=== PATIENT | male | born 1975 | race Caucasian/White ===

== ENCOUNTER 2017-02-16 10:52 | Emergency (ER) | payer OTHER ==
--- NOTE | ~2017-02-16 | EKG ---
PATIENT: GLYNN CHAMBERS UNIT #: [id number] Ventricular Rate: 73 BPM Atrial Rate: 73 BPM P-R Interval: 180 ms QRS Duration: 84 ms Q-T Interval: 364 ms QTC Calculation(Bezet): 401 ms P [place]: 60 degrees Calculated R [place]: 64 degrees Calculated T [place]: 27 degrees Diagnosis Line: Normal sinus rhythm Diagnosis Line: Early repolarization Diagnosis Line: Normal ECG Diagnosis Line: When compared with ECG of 27-MAR-2016 20:30, Diagnosis Line: No significant change was found Diagnosis Line: Confirmed by NARCISA BAUMAN MD ([id number]) on Diagnosis Line: 02/17/2017 3:45:30 PM INTERPRETING MD: MITUL BOWIE
[~2017-02-16 10:52] MED LIST: ACETAMINOPHEN325 MG PO; ALBUTEROL17 GM; ASPIRIN PO; ASPIRIN81 M1 PO; BRILINTA90 MG PO; CIPRO PO; CLEOCIN PO; CORTISPORIN-TC10 ML AD; CORTISPORIN-TC10 ML OT; DOLOBID500 MG PO; DOXYCYCLINE HY100 M1 PO; E-MYCIN250 MG PO; EFFIENT10 MG PO; FIORICET W/CODE1 CAP PO; FIORINAL 50-321 EACH PO; FLEXERIL PO; IMDUR-ER30 M1 PO; LEVAQUIN PO; LIPITOR80 MG PO; LISINOPRIL PO; LISINOPRIL10 MG PO; LISINOPRIL20 MG PO; LOPRESSOR PO; LOW DOSE ASPIRI81 M1 PO; METOPROLOL SUCC25 MG PO; NITROGLYGERIN0.4 MG SL; NO MEDICATIONS; NORVASC PO; NORVASC10 MG PO; ORUDIS75 M1 DOB; OTC COUGH MED; PAIN MED; PERCOCET5/325 PO; PHENERGAN W/CO120 ML PO; PREDNISONE; SIMVASTATIN10 MG PO; SKELAXIN PO; THERA-FLU; ULTRAM PO; VOLTAREN50 MG PO; VOLTAREN75 MG PO; WATER PILL; ZESTORETIC 20/11 TAB PO; ZITHROMAX PO; ZITHROMAX1 G/PKT PO; ZOCOR PO; ZOCOR20 MG PO
== END 2017-02-16 13:00 | disposition left against medical advice (07) ==
LOC: CED 10:52 → CFTX 13:00
DX: Z53.21 Procedure and treatment not carried out due to patient leaving prior to being seen by health care provider (principal)
CPT/HCPCS: 93005

== ENCOUNTER 2017-06-02 23:53 | Emergency (ER) | payer OTHER ==
[~2017-06-02] VITALS: Ht 154.9 cm; Wt 83.9 kg
--- NOTE | ~2017-06-02 | CR72 ---
[facility] A Service [facility] RADIOLOGY TEXT RESULTS PATIENT: GLYNN CHAMBERS SR LOCATION: SED : 74 UNIT #: [id number] AGE: [address]: Frederic Posadas MD SEX: M ORDER DR: [id number] [place] [address] [id number] E MR#: [id number] Acc #: [id number] NAME: GLYNN CHAMBERS SR : 1975 SEX: M STUDY DATE/TIME: 06/03/2017 0:28 UNIT: SED ROOM: STUDY DESCRIPTION: CR Chest Single View Portable Attending Physician: Frederic Posadas M.D. Ordering Physician: Frederic Posadas M.D. Primary Care Physician: Ferdinand Nguyễn M.D. MEDICAL IMAGING REPORT This report is preliminary unless electronic signature is present. EXAM Portable chest INDICATION Chest pain for the past week. PROCEDURE Frontal view of the chest. COMPARISON 01/30/2016. FINDINGS Heart size is unchanged. No dense consolidation, pleural fluid or pneumothorax. IMPRESSION No active process. Dictated by... César Mcgregor M.D. THIS IS AN ELECTRONICALLY VERIFIED REPORT César Mcgregor M.D. at 06/03/2017 10:07 PM EED/chelly TD: 06/03/2017 07:09 JOB #: [id number] MEDICAL IMAGING REPORT [facility] A Service [facility] RADIOLOGY TEXT RESULTS PATIENT: GLYNN CHAMBERS SR LOCATION: SED : 73 UNIT #: [id number] AGE: [address]: Frederic Posadas MD SEX: M ORDER DR: Page 1 of 1
--- NOTE | ~2017-06-02 | EKG ---
PATIENT: GLYNN CHAMBERS UNIT #: [id number] Ventricular Rate: 93 BPM Atrial Rate: 93 BPM P-R Interval: 156 ms QRS Duration: 82 ms Q-T Interval: 336 ms QTC Calculation(Bezet): 417 ms P [place]: 42 degrees Calculated R [place]: 49 degrees Calculated T [place]: 10 degrees Diagnosis Line: Normal sinus rhythm Diagnosis Line: Nonspecific ST and T wave abnormality Diagnosis Line: Abnormal ECG Diagnosis Line: When compared with ECG of 16-FEB-2017 11:10, Diagnosis Line: Nonspecific T wave abnormality now evident in Diagnosis Line: Lateral leads Diagnosis Line: Confirmed by CINTHIA CH MD ([id number]) on Diagnosis Line: 06/07/2017 10:40:10 AM INTERPRETING MD: DIMA BOWIE
[2017-06-03 00:24] LABS: BASOPHIL# 0.1 X10e3 (0-0.3); BASOPHIL% 0.8 % (0-2.5); EOSINOPHIL# 0.2 X10e3 (0-0.7); EOSINOPHIL% 3.4 % (0.0-7.0); HEMATOCRIT 44.4 % (38.0-50.0); HEMOGLOBIN 15.9 gm/dL (13.0-16.0); LYMPHOCYTE# 1.9 X10e3 (1.0-3.5); MEAN CELL VOLUME 93.1 FL (83-96); MEAN CORPUSCULAR HEMOGLOBIN 33.3 PG (28-34); MEAN CORPUSCULAR HGB CONC 35.8 g/dL (30-36); MONOCYTE# 0.9 X10e3 (0-1.0); MONOCYTE% 12.5 % (3.0-12.0); NEUTROPHIL# 4.1 X10e3 (1.5-7.1); NEUTROPHIL% 57.3 % (40-75); PLATELET COUNT 216 X10e3 (140-420); RED BLOOD COUNT 4.76 X10e (3.90-5.60); RED CELL DISTRIBUTION WIDTH 12.4 % (11.0-15.5); WHITE BLOOD COUNT 7.2 X10e3 (4.0-10.5)
[2017-06-03 00:28] LABS: INR 1.1; PROTHROMBIN TIME (PATIENT) 12.1 SECONDS (9.5-12.4)
[2017-06-03 00:29] LABS: DIFF IND NO
[2017-06-03 00:36] LABS: ALBUMIN SERUM 4.4 g/dL (3.5-5.0); ALKALINE PHOSPHATASE 92 U/L (32-92); ALT (SGPT) 37 U/L (10-40); AST (SGOT) 28 U/L (10-42); BILIRUBIN, DIRECT <0.1 mg/dL (0.0-0.2); BILIRUBIN,INDIRECT 0.4 mg/dL (0.0-0.9); BILIRUBIN,TOTAL 0.5 mg/dL (0.2-2.0); BLOOD UREA NITROGEN 12 mg/dL (9-23); CALCIUM SERUM 8.4 mg/dL (8.4-10.2); CARBON DIOXIDE 24 mmol/L (22-31); CHLORIDE 97 mmol/L (100-111); GLOM FILT RATE Estimated 91.8 mL/min (>60); GLUCOSE FASTING 204 mg/dL (70-110); PARTIAL THROMBOPLASTIN TIME 30.8 SECONDS (25.6-38.1); POTASSIUM 3.6 mmol/L (3.5-5.1); PROTEIN TOTAL SERUM 7.5 g/dL (6.0-8.3); SODIUM 127 mmol/L (135-145)
[2017-06-03 00:37] LABS: POC - CKMB 2.8 ng/mL (0.0-7.9); POC - MYOGLOBIN 85.8 ng/mL (0.0-169.0)
[2017-06-03 00:38] LABS: POC - TROPONIN <0.05 ng/mL (<=0.05)
== END 2017-06-03 02:01 | disposition home or self-care (01) ==
LOC: SED 23:53
PROVIDERS: Emergency Medicine
DX: R07.89 Other chest pain (principal); E87.1 Hypo-osmolality and hyponatremia; I10 Essential (primary) hypertension; F17.200 Nicotine dependence, unspecified, uncomplicated; Z86.79 Personal history of other diseases of the circulatory system; Z98.890 Other specified postprocedural states; Z88.0 Allergy status to penicillin; Z79.899 Other long term (current) drug therapy; Z79.82 Long term (current) use of aspirin
CPT/HCPCS: 36415; 71010; 80048; 80076; 82553; 83874; 84484; 85025; 85610; 85730; 93005; 99285